=== PATIENT | female | born 1965 | race Caucasian/White ===

== ENCOUNTER 2017-07-24 08:22 | Day surgery (SDC) | payer BC ==
[~2017-07-24 08:22] MED LIST: Lactated Ringers 1,000 ML IV SCH; Lidocaine 1% 0 ML ONE; Lidocaine 1%/Sod Bicarbonate in NS 8.4% 1 ML Syringe IV PRN; Ondansetron 4 MG/2 ML SDV ONE; Propofol 200 MG/20 ML SDV ONE; Sodium Chloride 0.9% 10 ML Syringe FLUSH PRN; fentaNYL 100 MCG/2 ML SDV ONE
--- NOTE | 2017-07-24 08:58 | PCM.PREANE ---
Preanesthetic Assessment - Procedure Proposed Procedure: Diagnostic colonoscopy - Anesthesia/Transfusion/Family Hx Anesthesia History: Prior Anesthesia Without Reaction Family History of Anesthesia Reaction: No Transfusion History: No Prior Transfusion(s) - Review of Systems General: No Symptoms Pulmonary: No Symptoms Cardiovascular: Other (HLD) Gastrointestinal: Other (OCC GERD with diet ) Neurological: No Symptoms Other: Reports: None - Physical Assessment NPO Status Date: 07/23/17 NPO Status Time: 23:40 Pulse: 74 O2 Sat by Pulse Oximetry: 96 Respiratory Rate: 16 Blood Pressure: 132/76 Temperature: 37.1 C Height: 1.55 m Weight: 88.451 kg ASA Class: 2 Mental Status: Alert & Oriented x3 Airway Class: Mallampati = 2 Dentition: Reports: Normal Dentition Thyro-Mental Finger Breadths: 3 Mouth Opening Finger Breadths: 3 ROM/Head Extension: Full Lungs: Clear to Auscultation, Normal Respiratory Effort Cardiovascular: Regular Rate, Regular Rhythm - Allergies Allergies/Adverse Reactions: Allergies Allergy/AdvReac Type Severity Reaction Status Date / Time Penicillins Allergy Cannot Verified 07/23/17 12:59 Remember strawberry Allergy Cannot Verified 07/23/17 12:59 Remember Sulfa (Sulfonamide Allergy Cannot Verified 07/23/17 12:59 Antibiotics) Remember - Blood Blood Available: No Product(s) Available: None - Anesthesia Plan Pre-Op Medication Ordered: None - Acknowledgements Anesthesia Type Planned: MAC Pt an Appropriate Candidate for the Planned Anesthesia: Yes Alternatives and Risks of Anesthesia Discussed w Pt/Guardian: Yes Pt/Guardian Understands and Agrees with Anesthesia Plan: Yes PreAnesthesia Questionnaire HEENT History: Reports: Impaired Vision Cardiovascular History: Reports: High Cholesterol Respiratory History: Reports: None Gastrointestinal History: Reports: None Genitourinary History: Reports: None SLOOP CAPTAIN History: Reports: None Musculoskeletal History: Reports: None Neurological History: Reports: None Psychiatric History: Reports: None Endocrine/Metabolic History: Reports: None Hematologic History: Reports: None Immunologic History: Reports: None Oncologic (Cancer) History: Reports: None Dermatologic History: Reports: None - Past Surgical History HEENT Surgical History: Reports: Tonsillectomy Cardiovascular Surgical History: Reports: None Respiratory Surgical History: Reports: None GI Surgical History: Reports: Colonoscopy, Other (See Below) Other GI Surgeries/Procedures: sigmoidscopy Female Surgical History: Reports: Breast Biopsy, Hysterectomy Male Surgical History: Reports: None Endocrine Surgical History: Reports: None Neurological Surgical History: Reports: None Other Musculoskeletal Surgeries/Procedures:: ankle fracture with pin Oncologic Surgical History: Reports: None Dermatological Surgical History: Reports: None - SUBSTANCE USE Smoking Status *Q: Former Smoker Second Hand Smoke Exposure: No Recreational Drug Use History: No - HOME MEDS Home Medications: Home Meds Dicyclomine HCl 1 tab PO QID PRN 06/12/16 [History] atorvaSTATin Calcium [Atorvastatin Calcium] 10 mg PO DAILY 06/12/16 [History] Biotin 10,000 mcg PO DAILY 07/23/17 [History] Cholecalciferol (Vitamin D3) [Vitamin D3] 1,000 units PO DAILY 07/23/17 [History ] Famotidine [Pepcid AC] 10 mg PO ASDIRECTED 07/23/17 [History] Flaxseed Oil [Flax Oil] 1,000 mg PO DAILY 07/23/17 [History] Krill/Om-3/DHA/EPA/Phospho/Ast [Megared Melvin-3 Krill Oil Sfgl] 1 cap PO DAILY 07/23/17 [History] Multivits-Min/Iron/FA/Lutein [Centrum Silver Women Tablet] 1 tab PO DAILY [History] Psyllium with Sucrose [Metamucil] 1 dose PO DAILY 07/23/17 [History] Ubidecarenone [Coq-10] 100 mg PO DAILY 07/23/17 [History] Vitamin E 400 units PO DAILY 07/23/17 [History] - CURRENT (IN HOUSE) MEDS Current Meds: Current Medications Lactated Ringer's (Ringers, Lactated) 1,000 mls @ 125 mls/hr IV ASDIRECTED JAN Stop: 07/24/17 23:00 Lidocaine/Sodium Bicarbonate (Buffered Lidocaine 1% In Ns 8.4%) 0.25 ml IV ONETIME PRN PRN Reason: Prior to IV Start Stop: 07/24/17 18:00 Sodium Chloride (Saline Flush) 10 ml FLUSH ASDIRECTED PRN PRN Reason: Keep Vein Open Stop: 07/24/17 18:00 Discontinued Medications Fentanyl (Sublimaze) Confirm Administered Dose 100 mcg .ROUTE .STK-MED ONE Stop: 07/24/17 07:07 Lidocaine HCl (Xylocaine-Mpf 1%) Confirm Administered Dose 4 mls @ as directed .ROUTE .STK-MED ONE Stop: 07/24/17 07:07 Ondansetron HCl (Zofran) Confirm Administered Dose 4 mg .ROUTE .STK-MED ONE Stop: 07/24/17 07:08 Propofol (Diprivan 20 Ml) Confirm Administered Dose 400 mg .ROUTE .STK-MED ONE Stop: 07/24/17 07:07
[2017-07-24] MEDS ORDERED: Propofol 200 MG/20 ML SDV ONE ×2 (09:43→09:56)
[2017-07-24] MEDS ORDERED: Midazolam 1 MG/ML 2 ML SDV ONE (09:43)
[2017-07-24] MEDS ORDERED: fentaNYL 100 MCG/2 ML SDV ONE (09:57)
--- NOTE | 2017-07-24 10:11 | PCM.OPNOTE ---
- General Post-Op/Procedure Note Date of Surgery/Procedure: 07/24/17 Operative Procedure(s): Colonoscopy Findings: 1. Internal hemorrhoids but no evidence of polyp recurrence 2. Sigmoid diverticulosis uncomplicated Pre Op Diagnosis: History of severe rectal dysplastic polyp Post-Op Diagnosis: Internal hemorrhoids with an anal tag and uncomplicated sigmoid diverticulosis Anesthesia Technique: MAC, Moderate Sedation Primary Surgeon: Nicolas Ibarra Pathology: None EBL in mLs: 0 Complications: None Condition: Good Free Text/Narrative:: After adequate IV sedation and analgesia was obtained with monitoring the patient was placed on her left side. Perianal inspection revealed the anal tag. Digital rectal examination was unremarkable. A lubricated colonoscope was inserted to the cecum without difficulty. The bowel preparation was excellent. The cecum ascending colon transverse and descending colons were endoscopically normal with no mass lesions polyps or inflammatory changes seen. The sigmoid was tortuous and had thickened circular musculature that was associated with uncomplicated diverticuli. There were no polyps in the area. Within the rectum in both views there were no evidence of recurrent polyps. The previous polypectomy site was well-healed without evidence of recurrence. There was a prominent internal hemorrhoid. Air was removed as I finished the procedure which she tolerated well. Photographs were taken for the patient and for the medical record.
--- NOTE | 2017-07-24 10:16 | PCM48HPAN ---
Post Anesthesia Note - EVALUATION WITHIN 48HRS OF ANESTHETIC Vital Signs in Normal Range: Yes Patient Participated in Evaluation: Yes Respiratory Function Stable: Yes Airway Patent: Yes Cardiovascular Function Stable: Yes Hydration Status Stable: Yes Pain Control Satisfactory: Yes Nausea and Vomiting Control Satisfactory: Yes Mental Status Recovered: Yes
[2017-07-24 10:18] VITALS: BP 134/73
== END 2017-07-24 10:43 | disposition home or self-care (01) ==
LOC: JD.SDS 08:22
PROVIDERS: ATTEND Surgery
DX: Z09 Encounter for follow-up examination after completed treatment for conditions other than malignant neoplasm (principal); E78.00 Pure hypercholesterolemia, unspecified; K64.8 Other hemorrhoids; K57.30 Diverticulosis of large intestine without perforation or abscess without bleeding; K64.4 Residual hemorrhoidal skin tags; Z88.0 Allergy status to penicillin; Z88.2 Allergy status to sulfonamides; Z91.018 Allergy to other foods; Z79.899 Other long term (current) drug therapy; Z98.890 Other specified postprocedural states; Z90.710 Acquired absence of both cervix and uterus; Z90.89 Acquired absence of other organs; Z87.891 Personal history of nicotine dependence
CPT/HCPCS: 45378; J2250; J3010; J7120; 00811; J2405; J2704